=== PATIENT | female | born 1985 | race African-American/Black ===

== ENCOUNTER 2016-09-13 08:42 | Emergency (ER) | payer OTHER ==
[~2016-09-13] VITALS: Ht 167.6 cm; Wt 85.0 kg
[2016-09-13 08:59] VITALS: TEMP 37.5; Ht 167.6 cm; Wt 85.0 kg
[2016-09-13] MEDS ORDERED: SODIUM CHLORIDE 0.9% 1000ML 1,000 ML IV STA (09:19)
[2016-09-13] MEDS ORDERED: KETOROLAC TROMETHAMINE 30 MG/ML VIAL IV STA (09:19)
[2016-09-13] MEDS ORDERED: ONDANSETRON INJ 2 MG/ML 2 ML VIAL IV STA (09:19)
[2016-09-13 09:33] LABS: BASO % 0.4 %; BASO ABS # 0.03 K/uL (0-0.2); COMPLETE YES; EOS % 0.2 %; HEMATOCRIT 39.6 % (37-47); IG% 0.2 %; LYMPH % 17.3 %; LYMPH ABS # 1.48 K/uL (1.2-3.4); MEAN CORPUSCULAR HEMOGLOBIN 26.7 pg (25-34); MEAN CORPUSCULAR HGB CONC 33.3 g/dl (32-36); MEAN PLATELET VOLUME 10.2 fL (7.4-10.4); MONO % 7.4 %; NEUT % 74.5 %; PLATELET COUNT 292 K/uL (130-400); RED BLOOD COUNT 4.95 M/uL (4.2-5.4); WHITE BLOOD COUNT 8.57 K/uL (4.8-10.8)
[2016-09-13 09:38] LABS: BUN/CREATININE RATIO 15.3 (10-20); CALCIUM 8.9 mg/dl (8.5-10.1); CREATININE 0.72 mg/dl (0.60-1.20); POTASSIUM 3.8 mmol/L (3.5-5.1)
[2016-09-13 09:41] LABS: ALB/GLOB RATIO 0.8 (0.9-2)
[2016-09-13] MEDS ORDERED: AMPH20TA2 PO (09:46)
[2016-09-13] MEDS ORDERED: PEGI15IN INJ (09:48)
[2016-09-13 09:56] LABS: URINE APPEARANCE CLOUDY (CLEAR); URINE BILIRUBIN NEG (NEG); URINE COLOR YELLOW; URINE NITRITE POS (NEG); URINE PH 6.5 (4.5-7.5); URINE SPECIFIC GRAVITY 1.015 (1.000-1.030); UROBILINOGEN NEG (NEG)
[2016-09-13 10:01] LABS: MANUAL MICROSCOPIC REQUIRED? YES; REVIEW REQ? NO
[2016-09-13 10:13] LABS: URINE BACTERIA 2+ (NEG); URINE WBC >30 /hpf (0-5)
--- NOTE | 2016-09-13 10:17 | DIAGNOSTIC IMAGING REPORT ---
CT SCAN OF THE ABDOMEN AND PELVIS WITHOUT CONTRAST CLINICAL HISTORY: Left flank pain and hematuria COMPARISON STUDY: No previous studies for comparison. TECHNIQUE: CT scan of the abdomen and pelvis was performed from the lung bases to the proximal femurs. Images are reviewed in the axial, sagittal, and coronal planes. IV contrast was not administered for this examination. CT DOSE: 1014.01 mGycm FINDINGS: Lower chest: There are minimal basilar atelectatic changes Liver: The unenhanced liver is normal in size, contour, and attenuation. There is no intrahepatic biliary ductal dilatation. Gallbladder: Unremarkable. Spleen: Normal in size and attenuation. Pancreas: Unremarkable. Adrenal glands: Unremarkable. Kidneys: There is a punctate lower pole left renal calculus, and 6 mm mid pole left renal calculus. There is minimal left-sided perinephric stranding. There is mild prominence the left renal pelvis and proximal left ureter. No definite ureteral calculi are visualized. Pelvic basin calcifications are felt to reflect phleboliths. A recently passed calculus or urinary tract infection cannot be excluded. Bowel: There are no transition zones indicate bowel obstruction. The appendix is felt to be normal. There is no acute diverticulitis. Peritoneum: There is no intraperitoneal free air or abdominal ascites. Vasculature: The abdominal aorta is normal in course and caliber. Adenopathy: There are borderline enlarged bilateral inguinal lymph nodes right greater than left. Pelvic viscera: The bladder, and pelvic viscera are unremarkable. Skeletal structures: There are few scattered tiny sclerotic lesions likely representing bone islands IMPRESSION: 1. Left-sided nephrolithiasis 2. Minimal prominence of the left renal pelvis and proximal left ureter, but no ureteral or bladder calculi identified. The findings could indicate a recently passed calculus or urinary tract infection. 3. No evidence of bowel obstruction. No evidence of free air 4. Normal appendix 5. Borderline enlarged bilateral inguinal lymph nodes right greater than left Electronically signed by: Ovidio Clemente M.D. 09/13/2016 10:16 AM Dictated Date/Time: 09/13/2016 10:08 AM
[2016-09-13] MEDS ORDERED: CIPROFLOXACIN 400MG / 200ML D5W IV STA (10:42)
[2016-09-13] MEDS ORDERED: CIPR-255 PO (11:20)
[2016-09-13 13:00] VITALS: BP 115/91; PULSE 70; O2SAT 97
--- NOTE | 2016-09-13 15:44 | EMERGENCY ROOM VISIT NOTE ---
History First contact with patient: 08:52 Chief Complaint: FLANK PAIN Stated Complaint: LEFT SIDE PAIN, UNABLE TO URINATE, NAUSEA History of Present Illness The patient is a 30 year old female who presents to the Emergency Room with complaints of left flank pain that started approximately 4 days ago. The patient reports that the pain has not improved. The patient reports that it felt like she had to "clench while urinating". She did take some over-the- counter Azo which helped minimally for the next few days. She reports that the pain started to worsen again overnight. She does report occasional nausea. She has not had any fevers or chills. She denies any prior history of kidney stones or infections. She does report a prior history of urinary tract infections. She is sexually active. She denies with her last menstruation starting 2 days ago. The patient reports that the pain is constant in nature, and does not wax and wane. She currently rates her discomfort an 8 out of 10. Review of Systems HEENT: Denies dizziness, visual problems, hearing loss, tinnitus. Denies difficulty swallowing or oral lesions. PULMONARY: Denies cough, shortness of breath, sputum production or hemoptysis. CARDIOVASCULAR: Denies chest pain, palpitations, dyspnea on exertion, orthopnea or peripheral edema. GASTROINTESTINAL: Denies diarrhea, constipation, nausea, vomiting, or abdominal pain. GENITOURINARY: See history of present illness NEUROLOGIC: Denies history of epilepsy, CVA, TIA or chronic headaches. MUSCULOSKELETAL: Denies history of joint tenderness/swelling. SKIN: Denies rashes or lesions. PSYCHIATRIC: Denies history of depression or mental illness. ENDOCRINE: Denies history of diabetes or thyroid disorders. Past Medical/Surgical History Medical Problems: (1) Asthma (2) Multiple sclerosis Surgical Problems: (1) H/O LEEP Family History FH: cancer FH: diabetes mellitus FH: heart disease FH: hypertension Social History Smoking Status: Current Every Day Smoker Alcohol Use: none Marital Status: single Housing Status: lives with family Occupation Status: employed Current/Historical Medications Scheduled Amphetamine-Dextroamphetamine 20MG (Adderall 20MG), 20 MG PO BID Ciprofloxacin Hcl (Cipro), 500 MG PO BID Peginterferon Beta-1A (Plegridy), 1 DOSE INJ [id number] Allergies Coded Allergies: No Known Allergies (Unverified , 09/13/16) Physical Exam Vital Signs Date Time Temp Pulse Resp B/P Pulse Ox O2 Delivery O2 Flow Rate FiO2 09/13/16 13:00 70 18 115/91 97 09/13/16 11:51 80 16 128/79 99 Room Air 09/13/16 10:08 64 16 117/73 98 Room Air 09/13/16 08:59 37.5 85 18 149/86 100 Room Air Physical Exam CONSTITUTIONAL: Healthy and well nourished. Alert and oriented X 3 with positive affect. She does not appear in any acute distress, nor does she appear acutely or toxic. HEENT: Normocephalic, atraumatic. Pupils equal, round and reactive. No scleral icterus or conjunctival injection/pallor. NECK: Full active range of motion without discomfort. RESPIRATORY: Clear to auscultation bilaterally with no wheezing, crackles, rhonchi or stridor. CARDIOVASCULAR: Regular rate and rhythm with no murmurs, rubs or gallops. GASTROINTESTINAL: Bowel sounds present in all quadrants. Patient has no abdominal tenderness to palpation. Negative CVA tenderness. Negative McBurney' s point tenderness. No rigidity, guarding or rebound of the abdomen. MUSCULOSKELETAL: Full range of motion of all joints without discomfort. INTEGUMENTARY: No rash or other significant dermatologic conditions noted. HEMATOLOGIC: No ecchymosis or petechiae. NEUROLOGIC: Cranial nerves II-XII grossly intact. No focal neurologic deficits noted. Medical Decision & Procedures ER Provider Diagnostic Interpretation: Noncontrast CT of the abdomen and pelvis does show left renal calculi. She does have fullness of the left ureter, concerning for possible infection or recently passed stone. Radiologist report is as follows: CT SCAN OF THE ABDOMEN AND PELVIS WITHOUT CONTRAST CLINICAL HISTORY: Left flank pain and hematuria COMPARISON STUDY: No previous studies for comparison. TECHNIQUE: CT scan of the abdomen and pelvis was performed from the lung bases to the proximal femurs. Images are reviewed in the axial, sagittal, and coronal planes. IV contrast was not administered for this examination. CT DOSE: 1014.01 mGycm FINDINGS: Lower chest: There are minimal basilar atelectatic changes Liver: The unenhanced liver is normal in size, contour, and attenuation. There is no intrahepatic biliary ductal dilatation. Gallbladder: Unremarkable. Spleen: Normal in size and attenuation. Pancreas: Unremarkable. Adrenal glands: Unremarkable. Kidneys: There is a punctate lower pole left renal calculus, and 6 mm mid pole left renal calculus. There is minimal left-sided perinephric stranding. There is mild prominence the left renal pelvis and proximal left ureter. No definite ureteral calculi are visualized. Pelvic basin calcifications are felt to reflect phleboliths. A recently passed calculus or urinary tract infection cannot be excluded. Bowel: There are no transition zones indicate bowel obstruction. The appendix is felt to be normal. There is no acute diverticulitis. Peritoneum: There is no intraperitoneal free air or abdominal ascites. Vasculature: The abdominal aorta is normal in course and caliber. Adenopathy: There are borderline enlarged bilateral inguinal lymph nodes right greater than left. Pelvic viscera: The bladder, and pelvic viscera are unremarkable. Skeletal structures: There are few scattered tiny sclerotic lesions likely representing bone islands IMPRESSION: 1. Left-sided nephrolithiasis 2. Minimal prominence of the left renal pelvis and proximal left ureter, but no ureteral or bladder calculi identified. The findings could indicate a recently passed calculus or urinary tract infection. 3. No evidence of bowel obstruction. No evidence of free air 4. Normal appendix 5. Borderline enlarged bilateral inguinal lymph nodes right greater than left Laboratory Results 09/13/16 09:05 Red Blood Count 4.95, Mean Corpuscular Volume 80.0, Mean Corpuscular Hemoglobin 26.7, Mean Corpuscular Hemoglobin Concent 33.3, Mean Platelet Volume 10.2, Neutrophils (%) (Auto) 74.5, Lymphocytes (%) (Auto) 17.3, Monocytes (%) (Auto) 7.4, Eosinophils (%) (Auto) 0.2, Basophils (%) (Auto) 0.4, Neutrophils # (Auto) 6.39, Lymphocytes # (Auto) 1.48, Monocytes # (Auto) 0.63, Eosinophils # (Auto) 0.02, Basophils # (Auto) 0.03 09/13/16 09:05 Test 09/13/16 08:56 09/13/16 09:05 Urine Color YELLOW Urine Appearance CLOUDY (CLEAR) Urine pH 6.5 (4.5-7.5) Urine Specific Knott 1.015 (1.000-1.030) Urine Protein TRACE (NEG) Urine Glucose (UA) NEG (NEG) Urine Ketones NEG (NEG) Urine Occult Blood 1+ (NEG) Urine Nitrite POS (NEG) Urine Bilirubin NEG (NEG) Urine Urobilinogen NEG (NEG) Urine Leukocyte Esterase LARGE (NEG) Urine RBC 5-10 /hpf (0-4) Urine WBC >30 /hpf (0-5) Urine Epithelial Cells 0-5 /lpf (0-5) Urine Bacteria 2+ (NEG) Urine Test NEG (NEG) White Blood Count 8.57 K/uL (4.8-10.8) Red Blood Count 4.95 M/uL (4.2-5.4) Hemoglobin 13.2 g/dL (12.0-16.0) Hematocrit 39.6 % (37-47) Mean Corpuscular Volume 80.0 fL (80-100) Mean Corpuscular Hemoglobin 26.7 pg (25-34) Mean Corpuscular Hemoglobin Concent 33.3 g/dl (32-36) Platelet Count 292 K/uL (130-400) Mean Platelet Volume 10.2 fL (7.4-10.4) Neutrophils (%) (Auto) 74.5 % Lymphocytes (%) (Auto) 17.3 % Monocytes (%) (Auto) 7.4 % Eosinophils (%) (Auto) 0.2 % Basophils (%) (Auto) 0.4 % Neutrophils # (Auto) 6.39 K/uL (1.4-6.5) Lymphocytes # (Auto) 1.48 K/uL (1.2-3.4) Monocytes # (Auto) 0.63 K/uL (0.11-0.59) Eosinophils # (Auto) 0.02 K/uL (0-0.5) Basophils # (Auto) 0.03 K/uL (0-0.2) RDW Standard Deviation 41.5 fL (36.4-46.3) RDW Coefficient of Variation 14.3 % (11.5-14.5) Immature Granulocyte % (Auto) 0.2 % Immature Granulocyte # (Auto) 0.02 K/uL (0.00-0.02) Anion Gap 8.0 mmol/L (3-11) Est Creatinine Clear Calc Drug Dose 124.3 ml/min Estimated GFR () 129.3 Estimated GFR (Non- 111.6 BUN/Creatinine Ratio 15.3 (10-20) Calcium Level 8.9 mg/dl (8.5-10.1) Total Bilirubin 0.4 mg/dl (0.2-1) Aspartate Amino Transf (AST/SGOT) 17 U/L (15-37) Alanine Aminotransferase (ALT/SGPT) 25 U/L (12-78) Alkaline Phosphatase 88 U/L (45-117) Total Protein 8.6 gm/dl (6.4-8.2) Albumin 3.7 gm/dl (3.4-5.0) Globulin 4.9 gm/dl (2.5-4.0) Albumin/Globulin Ratio 0.8 (0.9-2) Lipase 139 U/L (73-393) The above labs were reviewed. Urinalysis is consistent with infection. Cultures were ordered and pending. Remaining labs are otherwise grossly normal. Medications Administered Medications (Trade) Dose Ordered Sig/Jason Route Start Time Stop Time Status Last Admin Dose Admin Sodium Chloride (Nss 1000ml) 1,000 ml @ 999 mls/hr Q1H1M STAT IV 09/13/16 09:19 09/13/16 10:19 DC 09/13/16 09:28 999 MLS/HR Ketorolac Tromethamine (Toradol Inj) 30 mg NOW STAT IV 09/13/16 09:19 09/13/16 09:21 DC 09/13/16 09:28 30 MG Ondansetron HCl (Zofran Inj) 4 mg NOW STAT IV 09/13/16 09:19 09/13/16 09:21 DC 09/13/16 09:28 4 MG Ciprofloxacin/ Dextrose (Cipro / D5w) 400 mg NOW STAT IV 09/13/16 10:42 09/13/16 10:43 DC 09/13/16 10:51 400 MG ED Course Patient history and physical exam were performed. Nurse's notes were reviewed. Vital signs were reviewed and were normal. She does have an elevated temperature of 37.5C. She is normotensive and not tachycardic. IV access was established, and labs were drawn. The patient was hydrated with a liter normal saline. Review of labs shows a urinalysis consistent with infection. Remaining labs are otherwise normal. Urine is negative. Noncontrast CT of the abdomen and pelvis shows a left renal calculi, and fullness of the left ureter, with suggestions of recently passed stone or infection. Because the urinalysis is consistent with infection, the patient was administered Cipro 400 mg IV infusion. The patient also received IV Toradol and Zofran after IV was accessed. The patient was provided a prescription for Cipro. She was instructed to follow-up with her PCP for recheck in 48 hours, returning to the emergency department for any progressively worsening symptoms. I did offer hospitalist evaluation, but the patient refused and wanted to go home. She denied any significant discomfort or nausea at the time of discharge. Medical Decision The patient has urinalysis consistent with infection. Although the patient does not have any CVA tenderness to suggest pyelonephritis, I do think that the patient does have an early pyelonephritis given CT findings. The patient is currently afebrile and without leukocytosis. Laboratory studies do not suggest pancreatitis, cholecystitis or hepatitis. Her abdomen is benign on exam. Impression Primary Impression: Pyelonephritis Departure Information Dispostion Home / Self-Care Prescriptions Ciprofloxacin Hcl (CIPRO) 500 Mg Tab 500 MG PO BID for 10 Days, #20 TAB Prov: Mathew Alex PA 09/13/16 Referrals No Doctor, Assigned (PCP) Forms HOME CARE DOCUMENTATION FORM, IMPORTANT VISIT INFORMATION Patient Instructions [facility] Additional Instructions Complete all Cipro antibiotics as prescribed. Increase fluid intake. Follow-up with your family doctor for recheck in 48 hours. Return to the emergency department for any progressively worsening symptoms, persistent vomiting or worsening fever.
== END 2016-09-13 13:01 | disposition home or self-care (01) ==
LOC: C.EDB 08:43 → C.EDA 13:01
DX: N10 Acute pyelonephritis (principal); N20.0 Calculus of kidney; J45.909 Unspecified asthma, uncomplicated; G35 Multiple sclerosis; F17.200 Nicotine dependence, unspecified, uncomplicated; Z87.440 Personal history of urinary (tract) infections; Z83.3 Family history of diabetes mellitus; Z82.49 Family history of ischemic heart disease and other diseases of the circulatory system